=== PATIENT | male | born 1975 | race Caucasian/White ===

== ENCOUNTER 2023-11-14 23:37 | Emergency (ER) | payer MEDICAID, SELFPAY ==
[2023-11-14 23:40] VITALS: BP 159/90; PULSE 95; RESP 16; TEMP 37.1; O2SAT 95; BMI 41.8
--- NOTE | 2023-11-14 23:55 | ED_ITS ---
HPI - Male Genitourinary 2 General: Chief complaint: Urogenital-Male Stated complaint: Fever,Back pain Time Seen by Provider: 11/14/23 23:42 History of Present Illness: 48-year-old male who has been sick for l ast several hours. He had a 1.6 fever at home. He complains of frequent urination, lower back pain that is bilateral. He has upper thigh pain as well. No diarrhea. He has a headache. He has been coughing. No known sick contacts. Related Data Home Medications Medication Instructions Recorded Confirmed aripiprazole 2 mg tablet mg PO 10/01/23 10/01/23 atorvastatin 40 mg tablet mg PO 10/01/23 10/01/23 blood-glucose sensor (Kid Bunch G7 #1 ea 10/01/23 10/01/23 Sensor device) duloxetine 60 mg capsule,delayed mg PO 10/01/23 10/01/23 release glimepiride 2 mg tablet mg PO 10/01/23 10/01/23 insulin detemir U-100 100 unit/mL unit SUBCUT 10/01/23 10/01/23 (3 mL) subcutaneous pen (Levemir FlexPen) lisinopril 30 mg tablet mg PO 10/01/23 10/01/23 omeprazole 40 mg capsule,delayed mg PO 10/01/23 10/01/23 release pen needle, diabetic 31 gauge x #1,200 ea 10/01/23 10/01/23 3/16 (TechLITE Pen Needle) pioglitazone 30 mg tablet mg PO 10/01/23 10/01/23 terbinafine HCl 250 mg tablet mg PO 10/01/23 10/01/23 Previous Rx's Medication Instructions Recorded cam boot to right #1 ea 10/01/23 nirmatrelvir 300 mg (150 mg See Rx Instructions PO .COMPLEX 11/15/23 x2)-ritonavir 100 mg tablet,dose #30 ea pack (Paxlovid) Allergies Allergy/AdvReac Type Severity Reaction Status Date / Time No Known Allergies Allergy Unverified 10/01/23 09:41 PFS ED 2 PFSH: Social History Smoking and tobacco/nicotine status: former use of tobacco/nicotine Physical Exam 2 Const: COMMON NORMALS: no acute distress GENERAL APPEARANCE: cooperative; not ill appearing and not frail appearing HENMT: COMMON NORMALS: normocephalic, atraumatic and Normal external nose present HEAD & SCALP: normocephalic and atraumatic FACE & SINUS: normal facial exam and face symmetric NOSE: Normal external nose present Eye: COMMON NORMALS: Equal, round and reactive pupils present and EOMs intact bilaterally PUPIL: Yes Equal, round and reactive pupils present Neck/C-Spine: GENERAL: Yes trachea midline Chest: CHEST: Yes Symmetrical chest wall rise Resp: COMMON NORMALS: normal respiratory effort, No retractions, No use of accessory muscles and clear to auscultation bilaterally AUSCULTATION: clear to auscultation bilaterally Cardio: COMMON NORMALS: regular rate and regular rhythm RATE: regular rate RHYTHM: regular rhythm GI: COMMON NORMALS: Normal to inspection, nondistended, normoactive bowel sounds present Extremity: COMMON NORMALS: no pedal edema Neuro: GWEN COMA SCALE: document GCS findings [place] coma scale eye opening: Spontaneous [place] coma scale verbal response: Orientated [place] coma scale motor response: [place]bey commands [place] coma scale total score: 15 S ENSORY EXAM: Yes extremities (intact) Psych: COMMON NORMALS: speech normal SPEECH: Yes normal speech Skin: COMMON NORMALS: no rashes or lesions noted GENERAL SKIN EXAM: no rashes or lesions noted Course 2 Vital Signs: Vital signs: Vital Signs Temperature 98.7 F 11/14/23 23:40 Pulse Rate 95 11/14/23 23:40 Respiratory Rate 16 11/14/23 23:40 Blood Pressure 159/90 11/14/23 23:40 Pulse Oximetry 95 11/14/23 23:40 Oxygen Delivery Me thod Room Air 11/14/23 23:40 [facility] - Male Medical Decision Making 48-year-old male with headache, generalized bodyaches, fever and weakness. His vitals are stable. CBC is normal. BMP is not remarkable. His CRP is 31. He is COVID-positive. Urinalysis is negative. He received a liter of fluid. He appears nontoxic. His exam is not remarkable. We will get Paxlovid for antiviral therapy given his acute presentation. His just had a liver transplant, so this becomes more imperative for him. Prescription called into pharmacy. Return for any worsening symptoms. Lab Data 11/15/23 00:00 11/15/23 00:00 Laboratory Results WBC 7.18 10^3/uL (3.29-11.43) 11/15/23 00:00 RBC 5.03 10^6/uL (3.85-5.65) 11/15/23 00:00 Hgb 12.90 g/dL (11.27-16.99) 11/15/23 00:00 Hct 40.8 % (37-53) 11/15/23 00:00 MCV 81.1 fl (82-101) L 11/15/23 00:00 MCH 25.6 pg (27-33) L 11/15/23 00:00 MCHC 31.6 g/dL (30-55) 11/15/23 00:00 RDW 14.3 % (12.1-15.1) 11/15/23 00:00 Plt Count 177 10^3/cmm (157-399) 11/15/23 00:00 MPV 11.0 fL (7.4-10.4) H 11/15/23 00:00 Neut % (Auto) 68.2 % 11/15/23 00:00 Lymph % (Auto) 16.4 % 11/15/23 00:00 [place] % (Auto) 13.4 % 11/15/23 00:00 Eos % (Auto) 1.0 % 11/15/23 00:00 Baso % (Auto) 0.4 % 11/15/23 00:00 Neut # (Auto) 4.90 10^3/uL (1.8-7.7) 11/15/23 00:00 Lymph # (Auto) 1.2 10^3/uL (0.8-4.8) 11/15/23 00:00 [place] # (Auto) 1.0 10^3/uL (0.2-0.9) H 11/15/23 00:00 Eos # (Auto) 0.1 10^3/uL (0.0-0.8) 11/15/23 00:00 Baso # (Auto) 0.0 10^3/uL (0.0-0.1) 11/15/23 00:00 Nucleated RBC % (auto) 0 % 11/15/23 00:00 Nucleated RBCs # 0.0 /100WBC 11/15/23 00:00 Sodium 141 mmol/L (136-145) 11/15/23 00:00 Potassium 4.0 mmol/L (3.5-5.1) 11/15/23 00:00 Chloride 104 mmol/L (98-107) 11/15/23 00:00 Carbon Dioxide 27 mmol/L (22-29) 11/15/23 00:00 Anion Gap 14.0 (5-19) 11/15/23 00:00 BUN 14 mg/dL (6-20) 11/15/23 00:00 Creatinine 0.7 mg/dL (0.7-1.2) 11/15/23 00:00 GFR Calculation 120.4 mL/min (90-130) 11/15/23 00:00 Glucose 126 mg/dL (65-115) H 11/15/23 00:00 Calculated Osmolality 294 mOsm/kg (285-295) 11/15/23 00:00 Calcium 8.9 mg/dL (8.5-10.5) 11/15/23 00:00 Total Bilirubin 0.2 mg/dL (0.15-1.2) 11/15/23 00:00 AST 25 U/L (0-40) 11/15/23 00:00 ALT 28 U/L (0-41) 11/15/23 00:00 Alkaline Phosphatase 78 U/L (40-130) 11/15/23 00:00 C-Reactive Protein 30.8 mg/L (0.0-4.9) H 11/15/23 00:00 Total Protein 7.0 g/dL (6.6-8.7) 11/15/23 00:00 Albumin 3.8 g/dL (3.5-5.2) 11/15/23 00:00 Globulin 3.2 g/dL (1.3-4.6) 11/15/23 00:00 Urine Color Yellow (Yellow) 11/14/23 00:00 Urine Appearance Clear (CLEAR) 11/14/23 00:00 Urine pH 6.0 (5-7) 11/14/23 00:00 Ur Specific [place] 1.005 (1.005-1.030) 11/14/23 00:00 Urine Protein Negative (Negative) 11/14/23 00:00 Urine Glucose (UA) Negative (Normal) 11/14/23 00:00 Urine Ketones Negative (Negative) 11/14/23 00:00 Urine Blood Negative (Negative) 11/14/23 00:00 Urine Nitrate Negative (Negative) 11/14/23 00:00 Urine Bilirubin Negative (Negative) 11/14/23 00:00 Urine Urobilinogen 0.2 mg/dL (Negative) 11/14/23 00:00 Ur Leukocyte Esterase Negative (Negative) 11/14/23 00:00 Urine RBC 0-2 /hpf (0-2) 11/14/23 00:00 Urine WBC 0-5 /hpf (0-5) 11/14/23 00:00 Ur Squamous Epith Cells 0-5 /hpf (0-5) 11/14/23 00:00 Amorphous Sediment Not Reportable 11/14/23 00:00 Urine Bacteria None seen /hpf (NONE) 11/14/23 00:00 Hyaline Casts 0-4 /lpf H 11/14/23 00:00 SARS-CoV-2 Ag (Rapid) Positive (Negative) H 11/15/23 00:00 No radiology studies performed this visit Discharge Plan Discharge Patient Disposition: Home Clinical Impression: COVID-19 Condition: Stable Prescriptions: New Paxlovid 300 mg (150 mg x 2)-100 mg tablets,dose pack See Rx Instructions .ROUTE .COMPLEX Qty: 30 0RF Rx Instructions: take TWO 150 mg tablets of nirmatrelvir with ONE 100 mg tablet of ritonavir twice daily for 5 days No Action terbinafine HCl 250 mg tablet PO Levemir FlexPen 100 unit/mL (3 mL) insulin pen SUBCUT aripiprazole 2 mg tablet PO atorvastatin 40 mg tablet PO pioglitazone 30 mg tablet PO glimepiride 2 mg tablet PO (DME) Dexcom G7 Sensor Device See Rx Instructions .ROUTE .MEDSUPPLY Qty: 1 Rx Instructions: As directed (DME) pen needle, diabetic [TechLITE Pen Needle] 31 gauge x 3/16 needle See Rx Instructions .ROUTE .MEDSUPPLY Qty: 1200 Rx Instructions: As directed omeprazole 40 mg capsule,delayed release(DR/EC) PO lisinopril 30 mg tablet PO duloxetine 60 mg capsule,delayed release(DR/EC) PO (DME) cam boot to right See Rx Instructions .Route .MEDSUPPLY Qty: 1 0RF Rx Instructions: As directed Discharge Orders: Discharge ED (Routine); Ordered 11/15/23 Ordered By: Addy Santana Referrals: Ford Mendoza FNP [Family Provider] - Escobar Jain DO [Primary Care Provider] - 4-7 days Patient Instructions: COVID-19 (Coronavirus Disease 2019) (ED), Opioid Safety, Pain Management Activity Restrictions/Additional Instructions: 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 Take as directed. Stay hydrated. Controlled fever with Tylenol or ibuprofen. Return to the emergency room for worsening shortness of breath, inability to control temperature with the above, any other concerning symptoms. Follow-up with your doctor. Coding Level of Care Code ED Sql Ss[employer] Developer for Pearl Reina
[2023-11-14 23:58] LABS: Charge for UA Resulting for Rev
[2023-11-15] LABS: Bilirubin Urine Negative (Negative); Blood Urine Negative (Negative); Glucose Urine UA Negative (Normal); Ketones Urine Negative (Negative); Leukocyte Esterase Urine Negative (Negative); Nitrate Urine Negative (Negative); Protein Urine Negative (Negative); Specific Gravity, Urine 1.005 (1.005-1.030); Urine Appearance Clear (CLEAR); Urine Color Yellow (Yellow); Urobilinogen Urine 0.2 mg/dL (Negative)
[2023-11-15 00:04] LABS: Basophils % 0.4 %; Eosinophils # 0.1 10^3/uL (0.0-0.8); Hematocrit 40.8 % (37-53); Lymphocytes # 1.2 10^3/uL (0.8-4.8); Lymphocytes % 16.4 %; Mean Corpuscular HGB Conc 31.6 g/dL (30-55); Mean Corpuscular Hemoglobin 25.6 pg (27-33); Mean Corpuscular Volume 81.1 fl (82-101); Monocytes % 13.4 %; Neutrophils % 68.2 %; Nucleated Red Blood Cells % 0 %; Platelet Count 177 10^3/cmm (157-399); Red Blood Count 5.03 10^6/uL (3.85-5.65); Red Cell Distribution Width 14.3 % (12.1-15.1); White Blood Count 7.18 10^3/uL (3.29-11.43)
[2023-11-15 00:05] LABS: Bacteria Urine None Seen /hpf; Hyaline Casts Urine 0-4 /lpf; RBC Urine 0-2 /hpf (0-2); Squamous Epithelial Cell Urine 0-5 /hpf (0-5); WBC Urine 0-5 /hpf (0-5)
[2023-11-15] MEDS: sodium chloride 0.9% 1,000 ML 999 ML IV (00:05)
[2023-11-15 00:29] LABS: Alanine Aminotransferase 28 U/L (0-41); Albumin Level 3.8 g/dL (3.5-5.2); Alkaline Phosphatase 78 U/L (40-130); Aspartate Amino Transferase 25 U/L (0-40); Blood Urea Nitrogen 14 mg/dL (6-20); C Reactive Protein 30.8 mg/L (0.0-4.9); Calcium 8.9 mg/dL (8.5-10.5); Carbon Dioxide 27 mmol/L (22-29); Chloride 104 mmol/L (98-107); Globulin 3.2 g/dL (1.3-4.6); Glomerular Filtration Rate 120.4 mL/min (90-130); Glucose 126 mg/dL (65-115); Osmolality Calculated 294 mOsm/kg (285-295); Sodium 141 mmol/L (136-145); Total Bilirubin 0.2 mg/dL (0.15-1.2)
[2023-11-15 00:34] LABS: SARS Covid-2 Antigen Positive (Negative)
[2023-11-15 01:26] VITALS: BP 150/91; PULSE 82; RESP 21; O2SAT 97
== END 2023-11-15 01:27 | disposition home or self-care (01) ==
PROVIDERS: Emergency Provider Emergency Medicine; PCP Family Medicine
DX: U07.1 COVID-19 (principal); Z79.4 Long term (current) use of insulin; Z79.84 Long term (current) use of oral hypoglycemic drugs; Z87.891 Personal history of nicotine dependence
CPT/HCPCS: 80053; 81003; 81015; 85025; 86140; 87426; 99284; J7030